=== PATIENT | female | born 1945 | race Caucasian/White ===

== ENCOUNTER 2016-08-31 12:11 | Emergency (ER) | payer OTHER ==
[2016-08-31 13:43] VITALS: BP 175/82; PULSE 75; TEMP 98.5; BMI 34.1
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
== END 2016-08-31 16:23 | disposition home or self-care (01) ==
LOC: EDMC 12:11
DX: S16.1XXA Strain of muscle, fascia and tendon at neck level, initial encounter (principal); S60.812A Abrasion of left wrist, initial encounter; S20.219A Contusion of unspecified front wall of thorax, initial encounter; V47.5XXA Car driver injured in collision with fixed or stationary object in traffic accident, initial encounter
CPT/HCPCS: 71020; 72050; 99283